=== PATIENT | male | born 1990 | race African-American/Black ===

== ENCOUNTER → 2016-12-11 | Outpatient (REF) | LOC: WSOH 12:54 → WSPT 13:45 → EDBD 13:45 | DX: Z02.89 Encounter for other administrative examinations (principal) ==

== ENCOUNTER 2018-01-21 12:54 | Outpatient (RCR) | payer OTHER ==
[~2018-01-21 12:54] MED LIST: NORCO 325 MG-51 TAB PO
== END 2018-04-06 | disposition home or self-care (01) ==
LOC: WSOH
DX: S60.222A Contusion of left hand, initial encounter (principal); W22.8XXA Striking against or struck by other objects, initial encounter; Y92.59 Other trade areas as the place of occurrence of the external cause; Y99.0 Civilian activity done for income or pay; Z79.1 Long term (current) use of non-steroidal anti-inflammatories (NSAID); F17.210 Nicotine dependence, cigarettes, uncomplicated
CPT/HCPCS: 24091; A6549